=== PATIENT | female | born 1930 | race Caucasian/White ===

== ENCOUNTER 2016-11-22 22:00 | Emergency (ER) | payer OTHER, MEDICARE ==
[2016-11-22 21:27] LABS: BASOPHILS 0.7 %; BASOPHILS ABSOLUTE 0.04 10/3/uL (0.0-0.16); EOSINOPHILS 2.6 %; EOSINOPHILS ABSOLUTE 0.16 10/3/uL (0.0-0.53); HEMOGLOBIN 11.8 g/dL (12.0-16.0); IMMATURE GRANULOCYTES 0.2 %; IMMATURE GRANULOCYTES ABSOLUTE 0.01 10/3/uL (0.0-0.11); LYMPHOCYTES 38.7 %; LYMPHOCYTES ABSOLUTE 2.36 10/3/uL (0.67-4.30); MEAN CORPUS HGB CONC 32.7 g/dL (32.0-36.0); MEAN CORPUSCULAR HEMOGLOB 28.9 pg (26.0-34.0); MEAN CORPUSCULAR VOLUME 88.3 fL (80-100); MEAN PLATELET VOLUME 9.7 fL (9.2-13.0); MONOCYTES 7.2 %; MONOCYTES ABSOLUTE 0.44 10/3/uL (0.21-1.20); NEUTROPHILS 50.6 %; NEUTROPHILS ABSOLUTE 3.09 10/3/uL (2.02-8.40); PLATELET COUNT 161 10/3/uL (150-400); RBC DISTRIBUTION WIDTH 15.4 % (12.0-16.0); RED CELL COUNT 4.09 10/6/uL (4.0-5.6); WHITE BLOOD CELLS 6.1 10/3/uL (4.5-10.5)
[2016-11-22 21:30] LABS: HEMATOCRIT 36.1 % (36.0-48.0); MANUAL DIFF NO %
[2016-11-22 21:44] LABS: ALBUMIN 3.6 G/DL (3.5-5.0); ALKALINE PHOSPHATASE 74 U/L (45-117); BUN (BLOOD UREA NITROGEN) 18 MG/DL (6-23); CALCIUM, SERUM 9.3 MG/DL (8.5-10.4); CHLORIDE, SERUM 109 MMOL/L (96-112); CO2 (CARBON DIOXIDE) 29 MMOL/L (24-34); CREATININE 0.98 MG/DL (0.55-1.02); GFR AFRICAN AMERICAN 61 ML/MIN (>=60); GFR NON AFRICAN AMERICAN 52 ML/MIN (>=60); GLOBULIN 3.7 G/DL (2.5-4.1); GLUCOSE, SERUM 92 MG/DL (60-99); POTASSIUM, SERUM 4.3 MMOL/L (3.5-5.3); SGOT(AST) 19 U/L (5-40); SGPT(ALT) 24 U/L (5-65); SODIUM, SERUM 146 MMOL/L (135-148); TOTAL BILIRUBIN 0.6 MG/DL (0-1.2); TOTAL PROTEIN 7.3 G/DL (6.0-8.5)
[2016-11-22 21:51] LABS: ASCORBIC ACID (UR NOT ORDER) 40 (NEG); BILIRUBIN, URINE NEGATIVE (NEG); ER URINALYSIS TAT 0 Hrs 11 Mins; KETONE, URINE NEGATIVE (NEG); LEUKOCYTE ESTERASE(NOT OR NEG (NEG); NITRITE (URINE) NEG (NEG); WBC (NOT ORDERED) (RFLEX) 4 (0-5)
[~2016-11-22 22:00] MED LIST: *UNABLE1; ACET500CAP PO; ACIPHEX PO; ALTA5 PO; ALTACE10 MG PO; ASAB PO; BLU EMU TOP; COREG3 PO; CYANO1000T PO; DIL2TAB PO; FEOSOL200 MG PO; FERROUS SULF325 M1 PO; FLORASTOR250 MG PO; GLUCPH8 PO; HALF81 PO; IBU600 PO; IMOD PO; LEXAPRO10 PO; LIPITOR40 PO; LIPITOR80 MG PO; MAGOX4 PO; MEGACEUDL PO; MIRALAXPKT PO; NEUR100 PO; NEUR300 PO; NORCO1 TA1 PO; NORCO1 TAB PO; NORV25 PO; NORV5 PO; NYS500UDL PO; OINTMENT OPH; PLAVIX PO; PRILO PO; PRIN5 PO; PROTONIX PO; REM15 PO; REMERON30 MG PO; SYSTANE OPH; ULORIC40 MG PO; VANC125UDL PO; VICKS NAS; VITAMIN 3 PO; VITAMIN B-121000 MC1 PO; VITAMIN B-121000 MC1 SL; VITAMIN C100 MG PO; VITAMIN D1000 UNI1 PO; VITAMIN D31000 UNIT PO; VITE PO; VIVELLE SY0.05 MG/24 TOP; VIVELLE0.05 MG TD; ZETIA PO; ZOFRAN2ML IM; [UNRECOGNIZED DRUG - OTHER] OP; [UNRECOGNIZED DRUG - OTHER] PO; [UNRECOGNIZED DRUG - REMARK] NAS
[2017-01-02] MEDS ORDERED: NEUR300 PO (02:25)
[2017-01-02] MEDS ORDERED: AMARYL2 PO (02:25)
[2017-01-02] MEDS ORDERED: NORCO1 TA1 PO (02:26)
[2017-01-02] MEDS ORDERED: LIPITOR80 MG PO (02:26)
[2017-01-02] MEDS ORDERED: PRILO PO (02:27)
[2017-01-02] MEDS ORDERED: ASAB PO (02:27)
[2017-01-02] MEDS ORDERED: TUMERIC 500MG OTC PO (02:27)
[2017-01-02] MEDS ORDERED: VITAMIN D31000 UNIT PO (02:28)
[2017-01-02] MEDS ORDERED: CYANO1000T PO (02:28)
[2017-01-02] MEDS ORDERED: COREG3 PO (02:28)
== END 2016-11-23 00:10 | disposition home or self-care (01) ==
LOC: ER 22:00
PROVIDERS: Nurse Practitioner Acute Care
DX: M54.2 Cervicalgia (principal); R10.9 Unspecified abdominal pain; E11.9 Type 2 diabetes mellitus without complications; F32.9 Major depressive disorder, single episode, unspecified; K21.9 Gastro-esophageal reflux disease without esophagitis; I12.9 Hypertensive chronic kidney disease with stage 1 through stage 4 chronic kidney disease, or unspecified chronic kidney disease; N18.9 Chronic kidney disease, unspecified; I25.2 Old myocardial infarction; Z88.1 Allergy status to other antibiotic agents; Z91.013 Allergy to seafood; Z88.5 Allergy status to narcotic agent; Z88.8 Allergy status to other drugs, medicaments and biological substances; Z79.899 Other long term (current) drug therapy; Z79.82 Long term (current) use of aspirin; Z85.038 Personal history of other malignant neoplasm of large intestine; V49.9XXA Car occupant (driver) (passenger) injured in unspecified traffic accident, initial encounter
CPT/HCPCS: 71010; 72125; 74177; 80053; 81001; 85025; 99284; Q9967

== ENCOUNTER 2016-12-07 23:58 | Observation (INO) | payer MEDICARE ==
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
[2016-12-08 00:23] LABS: BASOPHILS 0.4 %; BASOPHILS ABSOLUTE 0.03 10/3/uL (0.0-0.16); EOSINOPHILS ABSOLUTE 0.23 10/3/uL (0.0-0.53); ER CBC TAT 0 Hrs 07 Mins; HEMATOCRIT 36.2 % (36.0-48.0); HEMOGLOBIN 12.1 g/dL (12.0-16.0); IMMATURE GRANULOCYTES 0.4 %; IMMATURE GRANULOCYTES ABSOLUTE 0.03 10/3/uL (0.0-0.11); LYMPHOCYTES 32.9 %; LYMPHOCYTES ABSOLUTE 2.52 10/3/uL (0.67-4.30); MEAN CORPUS HGB CONC 33.4 g/dL (32.0-36.0); MEAN CORPUSCULAR HEMOGLOB 28.8 pg (26.0-34.0); MEAN CORPUSCULAR VOLUME 86.2 fL (80-100); MEAN PLATELET VOLUME 9.4 fL (9.2-13.0); MONOCYTES 10.3 %; MONOCYTES ABSOLUTE 0.79 10/3/uL (0.21-1.20); NEUTROPHILS ABSOLUTE 4.07 10/3/uL (2.02-8.40); PLATELET COUNT 164 10/3/uL (150-400); RBC DISTRIBUTION WIDTH 15.2 % (12.0-16.0); WHITE BLOOD CELLS 7.7 10/3/uL (4.5-10.5)
[2016-12-08 00:24] LABS: MANUAL DIFF NO %
[2016-12-08 00:32] LABS: PARTIAL THROMBO TIME 28.2 SEC (22.5-37.2)
[2016-12-08 00:40] LABS: CALCIUM, SERUM 9.1 MG/DL (8.5-10.4); CHLORIDE, SERUM 107 MMOL/L (96-112); CO2 (CARBON DIOXIDE) 27 MMOL/L (24-34); CREATININE 0.97 MG/DL (0.55-1.02); GFR AFRICAN AMERICAN 61 ML/MIN (>=60); GFR NON AFRICAN AMERICAN 53 ML/MIN (>=60); POTASSIUM, SERUM 3.9 MMOL/L (3.5-5.3); SODIUM, SERUM 142 MMOL/L (135-148)
[2016-12-08 00:41] LABS: BUN (BLOOD UREA NITROGEN) 14 MG/DL (6-23); GLUCOSE, SERUM 132 MG/DL (60-99)
[2016-12-08 00:42] LABS: CHEST PAIN PROFILE TAT 0 Hrs 26 Mins; TROPONIN I 0.05 NG/ML (<0.05)
[2016-12-08] MEDS ORDERED: COREG3 PO (03:49)
[2016-12-08] MEDS ORDERED: NEUR300 PO (03:49)
[2016-12-08] MEDS ORDERED: PRILO PO (03:50)
[2016-12-08] MEDS ORDERED: ASAB PO (03:51)
[2016-12-08] MEDS ORDERED: VITAMIN D31000 UNIT PO (03:51)
[2016-12-08] MEDS ORDERED: LIPITOR80 MG PO (03:51)
[2016-12-08] MEDS ORDERED: VITE PO (03:52)
[2016-12-08] MEDS ORDERED: CYANO1000T PO (03:52)
[2016-12-08] MEDS ORDERED: AMARYL2 PO (12:34)
[2016-12-08] MEDS ORDERED: BION TEARS OPH (12:35)
[2016-12-08] MEDS ORDERED: MOISTURE OPH (12:35)
[2016-12-08] MEDS ORDERED: [UNRECOGNIZED DRUG - OTHER] PO (12:39)
[2017-01-02] MEDS ORDERED: AMARYL2 PO (02:25)
[2017-01-02] MEDS ORDERED: NEUR300 PO (02:25)
[2017-01-02] MEDS ORDERED: LIPITOR80 MG PO (02:26)
[2017-01-02] MEDS ORDERED: NORCO1 TA1 PO (02:26)
[2017-01-02] MEDS ORDERED: TUMERIC 500MG OTC PO (02:27)
[2017-01-02] MEDS ORDERED: PRILO PO (02:27)
[2017-01-02] MEDS ORDERED: ASAB PO (02:27)
[2017-01-02] MEDS ORDERED: CYANO1000T PO (02:28)
[2017-01-02] MEDS ORDERED: VITAMIN D31000 UNIT PO (02:28)
[2017-01-02] MEDS ORDERED: COREG3 PO (02:28)
== END 2016-12-09 12:17 | disposition home or self-care (01) ==
LOC: ER 23:58 → CDU1 23:59 → CDU2 12-08 03:27
PROVIDERS: Specialist
DX: M54.2 Cervicalgia (principal); M43.6 Torticollis; I25.10 Atherosclerotic heart disease of native coronary artery without angina pectoris; E78.5 Hyperlipidemia, unspecified; I44.7 Left bundle-branch block, unspecified; E11.40 Type 2 diabetes mellitus with diabetic neuropathy, unspecified; K21.9 Gastro-esophageal reflux disease without esophagitis; I50.9 Heart failure, unspecified; E78.00 Pure hypercholesterolemia, unspecified; Z90.710 Acquired absence of both cervix and uterus; Z93.2 Ileostomy status; Z90.49 Acquired absence of other specified parts of digestive tract; Z90.89 Acquired absence of other organs; Z98.890 Other specified postprocedural states; Z85.038 Personal history of other malignant neoplasm of large intestine; Z87.19 Personal history of other diseases of the digestive system; Z79.4 Long term (current) use of insulin; Z88.5 Allergy status to narcotic agent; Z88.1 Allergy status to other antibiotic agents; Z88.8 Allergy status to other drugs, medicaments and biological substances; Z91.013 Allergy to seafood
CPT/HCPCS: 71010; 72141; 80048; 82962; 83735; 84484; 85025; 85610; 85730; 93005; 96374; 96375; 96376; 99285; A9270-GY; G0378; J0360; J2405; J2800

== ENCOUNTER 2017-01-05 23:34 | Emergency (ER) | payer MEDICARE ==
[~2017-01-05 23:34] MED LIST changes: +AMARYL2 PO; +BION TEARS OPH; +MOISTURE OPH; +TUMERIC 500MG OTC PO; +[UNRECOGNIZED DRUG - OTHER] PO
[2017-01-05 23:55] LABS: BASOPHILS 0.5 %; BASOPHILS ABSOLUTE 0.03 10/3/uL (0.0-0.16); EOSINOPHILS 3.3 %; EOSINOPHILS ABSOLUTE 0.19 10/3/uL (0.0-0.53); ER CBC TAT 0 Hrs 10 Mins; HEMATOCRIT 36.2 % (36.0-48.0); LYMPHOCYTES 42.8 %; LYMPHOCYTES ABSOLUTE 2.45 10/3/uL (0.67-4.30); MEAN CORPUS HGB CONC 33.1 g/dL (32.0-36.0); MEAN CORPUSCULAR HEMOGLOB 29.3 pg (26.0-34.0); MEAN CORPUSCULAR VOLUME 88.5 fL (80-100); MEAN PLATELET VOLUME 9.8 fL (9.2-13.0); MONOCYTES 9.1 %; MONOCYTES ABSOLUTE 0.52 10/3/uL (0.21-1.20); NEUTROPHILS 44.3 %; NEUTROPHILS ABSOLUTE 2.53 10/3/uL (2.02-8.40); PLATELET COUNT 181 10/3/uL (150-400); RBC DISTRIBUTION WIDTH 15.1 % (12.0-16.0); RED CELL COUNT 4.09 10/6/uL (4.0-5.6); WHITE BLOOD CELLS 5.7 10/3/uL (4.5-10.5)
[2017-01-05 23:56] LABS: PARTIAL THROMBO TIME 27.6 SEC (22.5-37.2); PROTIME (NOT ORD) 12.6 SEC (12.0-14.5)
[2017-01-05 23:57] LABS: MANUAL DIFF NO %
[2017-01-06 00:07] LABS: BUN (BLOOD UREA NITROGEN) 22 MG/DL (6-23); CHLORIDE, SERUM 110 MMOL/L (96-112); CO2 (CARBON DIOXIDE) 28 MMOL/L (24-34); CREATININE 1.03 MG/DL (0.55-1.02); GFR AFRICAN AMERICAN 57 ML/MIN (>=60); GFR NON AFRICAN AMERICAN 49 ML/MIN (>=60); SODIUM, SERUM 143 MMOL/L (135-148)
[2017-01-06 00:09] LABS: GLUCOSE, SERUM 167 MG/DL (60-99)
[2017-01-06 00:10] LABS: CHEST PAIN PROFILE TAT 0 Hrs 25 Mins
== END 2017-01-06 01:25 | disposition home or self-care (01) ==
LOC: ER 23:34
PROVIDERS: Specialist
DX: M25.512 Pain in left shoulder (principal); R07.9 Chest pain, unspecified; I25.2 Old myocardial infarction; I12.9 Hypertensive chronic kidney disease with stage 1 through stage 4 chronic kidney disease, or unspecified chronic kidney disease; E11.22 Type 2 diabetes mellitus with diabetic chronic kidney disease; N18.9 Chronic kidney disease, unspecified; E78.5 Hyperlipidemia, unspecified; Z95.5 Presence of coronary angioplasty implant and graft; Z90.49 Acquired absence of other specified parts of digestive tract; Z90.710 Acquired absence of both cervix and uterus; Z85.038 Personal history of other malignant neoplasm of large intestine; Z88.1 Allergy status to other antibiotic agents; Z88.5 Allergy status to narcotic agent; Z91.013 Allergy to seafood; Z88.8 Allergy status to other drugs, medicaments and biological substances; Z79.82 Long term (current) use of aspirin; Z79.899 Other long term (current) drug therapy
CPT/HCPCS: 71020; 80048; 83735; 84484; 85025; 85610; 85730; 93005; 99285